=== PATIENT | male | born 1935 | race Caucasian/White ===

== ENCOUNTER 2016-08-05 15:28 | Inpatient (IN) ==
[2016-08-05] MEDS ORDERED: ACETAMINOPHEN 325 MG TABLET PO PRN (16:43)
[2016-08-05] MEDS: SODIUM CHLORIDE 0.9% 1,000 ML IV SCH (17:08)
--- NOTE | 2016-08-05 17:30 | Hospitalist History & Physical ---
Assessment and Plan (1) UTI (urinary tract infection) Status: Acute Assessment and plan: Admit to [facility]. IV antibiotics empirically. Urinalysis and urine culture stat. IVF hydration. Current Visit: Yes (2) Bladder cancer Status: Chronic Assessment and plan: History of bladder ca. Current Visit: Yes (3) Prostate cancer Status: Chronic Current Visit: Yes (4) Peripheral vascular disease Status: Acute Assessment and plan: BLE. Order ZECHARIAH for evaluation. Treat accordingly. Lovenox for VTE instead of mechanical VTE Current Visit: Yes History of Present Illness Chief complaint: UTI History of present illness: Mr. Feng is a 81 year old white male patient with a history of bladder and prostate cancer that is a direct admit from the local [facility] for failed outpatient therapy of urinary tract infection and evaluation of bilateral lower extremities. is present at the bedside. Pt. was seen in the ED for fever and UTI last week and received a prescription for Levaquin. He states that he finished his therapy but didn't notice any relief. He and his went to see Gabby Jay today in clinic. This is reportedly the first time the patient had been seen by a provider since 2013 (when patient completed chemotherapy). Pt. denies fever, shortness of breath, n/v/d, or any other symptoms at this time. Pt 's also pointed out patient's legs which are slightly swollen and are scaly with discoloration noted to right foot. Pt. will be treated for UTI and tested for any vascular issues. Home Medications Medication Instructions Recorded Confirmed Type No Known Home Medications [No 08/05/16 08/05/16 History Known Home Medications] Allergies Allergy/AdvReac Type Severity Reaction Status Date / Time No Known Allergies Allergy Unverified 08/05/16 16:43 Medical,Surgical,& Family Hx - Medical History Respiratory: History of: Pneumonia Genitourinary: History of: Bladder Problem (bladder ca) - Surgical History Abdominal Surgeries: Surgical HX of: Appendectomy, Cholecystectomy - Family History Family History: Denies;: Family Anesthesia Reaction, Family Cancer, Family Diabetes, Family Heart Disease, Family Hematology, Family Hypertension, Family Psychiatric Problems, Family Stroke, Additional Family History - Social History Smoking Status: Unknown if ever smoked Frequency of Alcohol Use: None Type of Drug Use: None Marital Status: Lives With:: Spouse Functional capacity: independent ambulation - Constitutional Constitutional: Absent: chills, fever(s) - EENT Eyes: Present: loss of vision, requires corrective lense Ears: Present: decreased hearing. Absent: ear discharge Nose, mouth and throat: Absent: headache(s), hoarseness - Cardiovascular Cardiovascular: Present: dyspnea. Absent: chest pain at rest - Respiratory Respiratory: Absent: dyspnea - Gastrointestinal Gastrointestinal: Absent: abdominal pain, nausea, vomiting - Genitourinary Genitourinary: Present: difficulty urinating. Absent: urinary incontinence - Musculoskeletal Musculoskeletal: Absent: back pain - Neurological Neurological: Present: confusion. Absent: dizziness - Psychiatric Psychiatric: Present: confusion - Endocrine Endocrine: Absent: fatigue Exam - Constitutional Vitals: Period Temp Pulse Resp BP Sys/Rowe Pulse Ox Last 24 Hr 97.2 F 75 24 139/84 98 General appearance: normal weight, no acute distress - Head Head exam: Present: normal inspection, normocephalic - Eye Eye exam: Present: EOMI. Absent: scleral icterus Pupils: Present: ELIZABETH. Absent: fixed - Neck Neck exam: Absent: thyromegaly - Respiratory Respiratory exam: Present: clear to auscultation bilaterally. Absent: wheezes - Cardiovascular Cardiovascular exam: Present: regular rate and rhythm - GI/Abdominal GI/Abdominal exam: Present: normal bowel sounds, soft. Absent: tenderness - Extremities Exam Extremities exam: Present: edema (bilateral lower extremity), other (bilateral lower extremity is warm; skin is scaly.) - Neurological Exam Neurological exam: Present: alert, oriented X3 - Psychiatric Psychiatric exam: Present: normal affect, normal mood - Skin Skin exam: Present: normal color, warm, dry, other Results - Labs Labs: Labs pending
[2016-08-05] MEDS: cefTRIAXone 1,000 MG in SODIUM CHLORIDE 0.9% 100 ML IV SCH (18:25)
[2016-08-05 19:16] LABS: Calcium 8.8 MG/DL (8.5-10.1); Osmolality,Calculated 283.4 MOS/KG (273-304); Potassium 4.6 MMOL/L (3.5-5.1)
[2016-08-05 19:29] LABS: Apearance,Urine Slightly Hazy (Clear); Bacteria,Urine Few /HPF (Few); Bilirubin,Urine Negative (Negative); Blood, Urine Negative (Negative); Glucose,Urine (UA) Negative (Negative); Ketones,Urine Negative (Negative); Mucus,Urine Occasional /LPF (Occasional); Nitrite,Urine Negative (Negative); Protein,Urine 30 MG/DL; RBC,Urine 4 /HPF (0-4); Urine Color Yellow (Yellow); Urine Specific Gravity 1.011 (1.001-1.035); Urine Urobilinogen < 2.0 EU/DL (0.2-1.0); WBC,Urine 156 /HPF (0-6)
[2016-08-05] MEDS: ENOXAPARIN 40 MG/0.4 ML SYRINGE SUBCUT SCH (20:34)
[2016-08-06 05:23] LABS: Basophils % 0.2 % (0.0-0.8); Eosinophils # 0.2 10*3/uL (0.0-0.87); Eosinophils % 2.4 % (0.00-10.9); Hematocrit 36.3 VOL% (42.0-52.0); Hemoglobin 12.8 GM/DL (14.0-18.0); Immature Granulocytes % 0.5 %; Immature Granulocytes Absolute 0.04 #; Lymphocytes # 0.9 10*3/uL (1.4-4.0); Lymphocytes % 10.3 % (21.2-54.2); Mean Corpuscular HGB Conc 35.3 GM/DL (32-36); Mean Corpuscular Hemoglobin 31 PG (27-34); Mean Corpuscular Volume 88.1 FL (87-102); Mean Platelet Volume 8.3 FL (9.6-12.0); Monocytes # 0.5 10*3/uL (0.11-0.8); Monocytes % 5.4 % (1.7-12.7); Neutrophils # 6.7 10*3/uL (1.4-7.4); Neutrophils % 81.2 % (38.7-73.9); Platelet Count 245 T/CUMM (130-400); Red Blood Count 4.12 MC/CUMM (3.8-5.5); Red Cell Distribution Width 12.5 % (9.3-17.3); White Blood Count 8.3 T/CUMM (4-12)
[2016-08-06 05:51] LABS: Calcium 8.2 MG/DL (8.5-10.1); Free T4 (Free Thyroxine) 1.15 NG/DL (0.76-1.46); Magnesium 1.7 MG/DL (1.8-2.4); Osmolality,Calculated 279.5 MOS/KG (273-304); Potassium 4.1 MMOL/L (3.5-5.1); Risk Ratio 2.97; Thyroid Stimulating Hormone 2.93 uIU/ml (0.358-3.74); VLDL CHOLESTEROL 21.6 MG/DL
[2016-08-06] MEDS: SODIUM CHLORIDE 0.9% 1,000 ML IV SCH (06:39)
[2016-08-06] MEDS: PANTOPRAZOLE 40 MG TABLET PO SCH (10:44)
--- NOTE | 2016-08-06 10:56 | Hospitalist Progress Note ---
Hospitalist: Subjective Interval history: Patient denies any pain. No fever. He has had some urinary output. Denies any dysuria or hematuria. Tolerating oral intake. No nausea or vomiting. Last bowel movement was overnight. His answers most of the questions for him. Exam - Constitutional Vitals: Period Temp Pulse Resp BP Sys/Rowe Pulse Ox Last 24 Hr 96.2 F-98.3 F 75-77 18-24 118-149/60-84 93-98 Exam: Elderly, Awake, alert, NAD RRR 1/6 systolic M CTAB nonlabored Soft, NT, ND, +BS Warm no c/c/ trace LE edema with hyperpigmentation and slight pinkish hue to LE on shins. Results - Labs CBC & BMP: 08/06/16 05:01 08/06/16 05:01 - Impressions (1) UTI (urinary tract infection)/ ? cystitis vs. prostatitis Status: Acute Assessment and plan: - IV antibiotics empirically. F/U Urine culture stat. Stop IVF. Current Visit: Yes (2) Bladder cancer Status: Chronic Assessment and plan: History of bladder ca. Current Visit: Yes (3) Prostate cancer Status: Chronic Current Visit: Yes - check PSA. Consult urology (4) Peripheral vascular disease Status: Acute Assessment and plan: - ZECHARIAH pending. Treat accordingly. Lovenox for VTE instead of mechanical VTE. HgbA1c <6. Check lipid panel Current Visit: Yes (5) Acute renal failure - improved s/p IVF. Stop IVF D/W nurse, pt and . All questions answered.
[2016-08-06] MEDS ORDERED: NITROGLYCERIN SL 0.4 MG TABLET SL ONE (14:37)
[2016-08-06] MEDS ORDERED: ASPIRIN 325 MG TABLET ONE (14:37)
[2016-08-06] MEDS ORDERED: NITROGLYCERIN SL 0.4 MG TABLET SL STA (14:43)
[2016-08-06] MEDS ORDERED: ASPIRIN 325 MG TABLET PO STA (14:44)
[2016-08-06 15:05] LABS: ABG Base Excess -3.2 MMOL/L (-2.5-2.5); ABG HCO3 21.8 MMOL/L (20-26); ABG PH 7.405 (7.35-7.45)
--- NOTE | 2016-08-06 15:05 | XRay Report ---
History: Chest pain Date: 08/06/2016 Study: Chest x-ray AP portable Comparison exam: July 27, 2016 chest x-ray A right subclavian Mediport-type catheter is stable in position. There is mild cardiomegaly. The mediastinal contours are unchanged. There is moderate aortic arch calcification. The pulmonary vasculature is borderline prominent, though the exam was performed in shallow inspiration. There is some minor strandy and hazy atelectasis in the lung bases. There is no gross pleural effusion. Osseous structures are similar. Impression: Shallow inspiration with some mild subsegmental atelectasis in the lung bases. Borderline pulmonary venous hypertension appearance PROCEDURE INTERPRETED AT [facility] DEPARTMENT OF RADIOLOGY Final Report Signed by: Dr. Veronica Patricio
--- NOTE | 2016-08-06 15:19 | Urology Consultation ---
Assessment and Plan - Time spent with patient Time spent with patient: Less than 30 minutes (1) UTI (urinary tract infection) Status: Acute Assessment and plan: Treat the infection. I do recommend he get an appointment over see Dr. Salinas. I am not his urologist. The patient terminated a relationship and when he went and saw Dr. Hurtado. Dr. Hurtado was treating him for bladder cancer. Current Visit: Yes History of Present Illness - Data of Consult Patient: new to practice Consult date: 08/06/16 Requesting Physician: Laura Olsen - Consult Narrative Reason for consult: Urinary tract infection History of present illness: Mr. Feng is a 81 year old male who used to be a patient of mine. I actually did a TUR on him years ago. Last time I saw him was 2010. They have since seen another urologist who apparently diagnosed bladder cancer. He had radiation and chemo. He has not been back since. He has not had cystoscopy since. I recommend that his infection be treated and he get an appointment to see Dr. Salinas over at [place]. He has fired me so I am not his urologist. He needs a follow-up for the invasive bladder cancer. I do not have any specific recommendations at this time. CC: Laura Olsen MD - Home Medications and Allergies Home Medications: Home Medications Medication Instructions Recorded Confirmed Type No Known Home Medications [No 08/05/16 08/05/16 History Known Home Medications] Allergies/Adverse Reactions: Allergies Allergy/AdvReac Type Severity Reaction Status Date / Time No Known Allergies Allergy Unverified 08/05/16 16:43 12 point system: reviewed and no additional remarkable complaints except as stated Exam - Constitutional Vitals: Period Temp Pulse Resp BP Sys/Rowe Pulse Ox Last 24 Hr 96.2 F-98.3 F 75-83 18-24 118-149/60-84 93-98 Results - Labs CBC & BMP: 08/06/16 05:01 08/06/16 05:01
[2016-08-06 15:48] LABS: Troponin I Only < 0.015 NG/ML (0.00-0.045)
[2016-08-06] MEDS: ENOXAPARIN 40 MG/0.4 ML SYRINGE SUBCUT SCH (20:53)
[2016-08-06] MEDS: cefTRIAXone 1,000 MG in SODIUM CHLORIDE 0.9% 100 ML IV SCH (22:05)
--- NOTE | 2016-08-07 07:11 | Hospitalist Progress Note ---
Hospitalist: Subjective Interval history: Pt had a heart alert yesterday. EKG and cardiac markers were negative. Given Nitro SL x 1 and was pain free when I evaluated pt. No fever. He has had no further chest pain. Feet cool and slightly pale this am while sitting in a chair. states he does this most of the time. She thinks the redness on the left leg is improving. Exam - Constitutional Vitals: Period Temp Pulse Resp BP Sys/Rowe Pulse Ox Last 24 Hr 97.3 F-98.9 F 73-92 16-20 118-135/63-71 94-98 Exam: Elderly, Awake, alert, NAD, sitting in the chair. RRR 1/6 systolic M CTAB nonlabored Soft, NT, ND, +BS Warm no c/c/ trace LE edema with hyperpigmentation and slight pinkish hue to LE on shins. toes are cyanotic and cool. Palpable pulses appreciated. Results - Labs CBC & BMP: 08/06/16 05:01 08/06/16 05:01 - Impressions (1) UTI (urinary tract infection)/ ? cystitis vs. prostatitis Status: Acute Assessment and plan: - IV antibiotics empirically. F/U Urine culture. Current Visit: Yes (2) Bladder cancer Status: Chronic Assessment and plan: History of bladder ca. Current Visit: Yes (3) Prostate cancer Status: Chronic Current Visit: Yes - PSA normal. Urology recommended F/U with Dr. Salinas ([place]) at discharge. (4) Peripheral vascular disease Status: Acute Assessment and plan: - ZECHARIAH pending. F/U results. Treat accordingly. Lovenox for VTE instead of mechanical VTE. HgbA1c <6. Lipid panel shows LDL <100. Current Visit: Yes (5) Acute renal failure - improved s/p IVF. Stop IVF D/W nurse, pt and . All questions answered. I will be away several days. One of my associates will follow in my absence.
--- NOTE | 2016-08-07 08:36 | EKG Report ---
Stationary ECG Study [facility] Test Date: 08/06/2016 2:40:52 PM Pat Name: MARGARITA MOSQUERA Department: Room: 223 Gender: M [employer] Specialist: : [id number] Requested by: Ward Talley Order Number: [id number] Reading MD: NINA WEBB Intervals [place] Rate: 77 P: 57 CT: 203 QRS: 15 QRSD: 86 T: 39 QT: 359 QTc: 390 Interpretive Statements SINUS RHYTHM NORMAL ECG Electronically Signed On 08-07-16 10:10:50 CDT by NINA WEBB [email or web address]
[2016-08-07] MEDS: PANTOPRAZOLE 40 MG TABLET PO SCH (09:38)
[2016-08-07] MEDS: ENOXAPARIN 40 MG/0.4 ML SYRINGE SUBCUT SCH (20:20)
[2016-08-07] MEDS: cefTRIAXone 1,000 MG in SODIUM CHLORIDE 0.9% 100 ML IV SCH (20:20)
--- NOTE | 2016-08-08 09:44 | Hospitalist Progress Note ---
Assessment and Plan (1) UTI (urinary tract infection) Status: Acute Current Visit: Yes (2) Peripheral vascular disease Status: Acute Current Visit: Yes (3) Prostate cancer Status: Chronic Assessment and plan: -Continue current IV antibiotics for treatment of urinary tract infection -Repeat urinalysis in the morning -Ankle-brachial index studies remain pending -Continue Lovenox for DVT prophylaxis -The patient's urine is improved and his ABIs are normal, patient should be stable for discharge tomorrow Current Visit: Yes Hospitalist: Subjective Interval history: The patient reports that he feels better today. He denies any fevers or chills overnight. He is tolerating antibiotics well. He denies any chest pain, headaches or shortness of breath. He reports that the swelling of both lower extremities has improved as well. Exam - Constitutional Vitals: Period Temp Pulse Resp BP Sys/Rowe Pulse Ox Last 24 Hr 96.5 F-98.1 F 71-91 18-22 115-134/60-75 90-97 General appearance: normal weight - Head Head exam: Present: normal inspection - Eye Eye exam: Present: EOMI Pupils: Present: ELIZABETH - ENT ENT exam: Present: normal exam, normal oropharynx - Neck Neck exam: Present: normal inspection - Respiratory Respiratory exam: Present: clear to auscultation bilaterally. Absent: rhonchi, stridor, wheezes - Cardiovascular Cardiovascular exam: Present: regular rate and rhythm. Absent: systolic murmur , tachycardia - GI/Abdominal GI/Abdominal exam: Present: normal bowel sounds, soft. Absent: ascites, distended - Extremities Exam Extremities exam: Present: edema (1+ pitting edema bilaterally) - Neurological Exam Neurological exam: Present: alert, oriented X3, CN II-XII intact - Psychiatric Psychiatric exam: Present: normal affect, normal mood - Skin Skin exam: Present: erythema (Erythema bilateral lower extremities, improving) Results - Labs CBC & BMP: 08/06/16 05:01 08/06/16 05:01
[2016-08-08] MEDS: PANTOPRAZOLE 40 MG TABLET PO SCH (10:14)
[2016-08-08] MEDS: cefTRIAXone 1,000 MG in SODIUM CHLORIDE 0.9% 100 ML IV SCH (20:49)
[2016-08-08] MEDS: ENOXAPARIN 40 MG/0.4 ML SYRINGE SUBCUT SCH (20:49)
[2016-08-09 05:15] LABS: Basophils % 0.4 % (0.0-0.8); Eosinophils # 0.3 10*3/uL (0.0-0.87); Eosinophils % 4.6 % (0.00-10.9); Hemoglobin 12.2 GM/DL (14.0-18.0); Immature Granulocytes % 0.4 %; Immature Granulocytes Absolute 0.03 #; Lymphocytes # 0.9 10*3/uL (1.4-4.0); Lymphocytes % 13.2 % (21.2-54.2); Mean Corpuscular HGB Conc 34.9 GM/DL (32-36); Mean Corpuscular Hemoglobin 31 PG (27-34); Mean Corpuscular Volume 88.6 FL (87-102); Mean Platelet Volume 8.5 FL (9.6-12.0); Monocytes # 0.7 10*3/uL (0.11-0.8); Monocytes % 9.4 % (1.7-12.7); Neutrophils # 5.1 10*3/uL (1.4-7.4); Platelet Count 285 T/CUMM (130-400); Red Blood Count 3.95 MC/CUMM (3.8-5.5); Red Cell Distribution Width 12.7 % (9.3-17.3)
[2016-08-09 05:52] LABS: Calcium 8.5 MG/DL (8.5-10.1); Potassium 3.9 MMOL/L (3.5-5.1)
--- NOTE | 2016-08-09 07:42 | Urology Progress Note ---
Urology - PN: Subj Interval history: I saw the patient today at the family's request. The patient has a history of prostate and bladder cancer and has been followed by Dr. chaney but apparently has not had any evaluation recently. History was obtained from the patient's and she was not able to give him a detailed history. Patient was admitted with a urinary tract infection and had pyuria on urinalysis and has normal renal function. I am going to order a PSA and urine cytology on the patient today and request records from Dr. chaney's office. It is okay with me to discharge the patient as needed and I will follow-up in the office and plan an outpatient cystoscopic examination of the patient is due for this Exam - Constitutional Vitals: Period Temp Pulse Resp BP Sys/Rowe Pulse Ox Last 24 Hr 97.1 F-97.7 F 75-91 18-20 123-151/66-79 95-98 Results - Labs CBC & BMP: 08/09/16 04:50 08/09/16 04:50
[2016-08-09] MEDS: PANTOPRAZOLE 40 MG TABLET PO SCH (08:17)
--- NOTE | 2016-08-09 08:49 | XRay Report ---
History: Fall. History of prostate cancer and bladder cancer Date: 08/09/2016 Study: Right hip 2 views to include AP pelvis Comparison exam: No previous hip x-ray available There is no acute fracture or dislocation. There is mild osteophyte formation of either hip, with mild joint space narrowing. A ureteral stent is in place on the right, only partially included on the exam. Impression: Osteoarthritis. No acute bony abnormality otherwise. Right ureteral stent, partially visualized PROCEDURE INTERPRETED AT [facility] DEPARTMENT OF RADIOLOGY Final Report Signed by: Dr. Veronica Patricio
--- NOTE | 2016-08-09 14:44 | Discharge Summary ---
Hospital Course - Hospital Course Hospital Course: Discharge diagnosis Urinary tract infection malignancy Venous stasis disease The patient presented to the hospital on referral from an outside clinic for treatment of urinary tract infection. He was also felt to have some possible peripheral arterial disease. He was started on some IV antibiotics. Examination was more consistent with venous stasis disease. He improved with IV antibiotics. He had a fall on the evening prior to discharge, and landed on his right hip. He had a hematoma, but there is no injury noted on the x-ray of the hip. On the day of discharge, he was ambulatory in the room. His urine culture only grew staph epidermidis. This is likely a contaminant. I think he is ready for discharge now. Medication reconciliation has been done. Regular diet. Activity as tolerated. Follow-up with local physician. This note was completed using [email or web address] voice recognition software. There may be costume specialist errors as a result. Specialty Discharge - Follow Up or Referrals Follow up with: Augusto Moss MD [Physician] - 09/08/16 9:45 am Discharge Plan - Discharge Data Disposition: Disch To Home/Self Care Condition at Discharge: Stable Discharge Diet: advance to your usual diet Activity: resume usual activities as tolerated Hygiene: no restrictions Weight Bearing at Discharge: full weight bearing - Discharge Medications No Action No Known Home Medications [No Known Home Medications] - Follow Up or Referral Follow Up: Augusto Moss MD [Physician] - 09/08/16 9:45 am - Forms/Instructions Exam - Constitutional Vitals: Period Temp Pulse Resp BP Sys/Rowe Pulse Ox Last 24 Hr 97.1 F-97.8 F 73-96 18-20 120-151/53-79 94-100 Vital signs are noted above. Heart is regular with no murmur. Lungs are clear with no rales or wheezes. He is up and about in the room. He has a soft tissue hematoma along the right trochanteric bursa. Discharge Results Procedures and tests throughout hospitalization: Pending Orders 08/09/16 07:00 Urinalysis Routine 08/09/16 07:44 Cytology Request Routine Labs on day of discharge: Labs from last 24 hours 08/09/16 08/09/16 08/09/16 04:50 04:50 04:50 WBC 7.0 RBC 3.95 Hgb 12.2 L Hct 35.0 L MCV 88.6 MCH 31 MCHC 34.9 RDW 12.7 Plt Count 285 MPV 8.5 L Neut % (Auto) 72.0 Lymph % (Auto) 13.2 L Woods % (Auto) 9.4 Eos % (Auto) 4.6 Baso % (Auto) 0.4 Neut # (Auto) 5.1 Lymph # (Auto) 0.9 L Woods # (Auto) 0.7 Eos # (Auto) 0.3 Baso # (Auto) 0.0 Immature Gran % 0.4 Nucleated RBC % 0.0 Immature Gran # 0.03 Nucleated RBCs # 0.00 Sodium 143 Potassium 3.9 Chloride 108 H Carbon Dioxide 26 Anion Gap 12.9 BUN 14 Creatinine 1.20 GFR Calculation 68 BUN/Creatinine Ratio 11.00 Glucose 92 Calculated Osmolality 285.0 Calcium 8.5 PSA Diagnostic 0.1 DS: Provider Date of admission: 08/05/16 16:02 Primary care physician: Gabby Thompson NP Attending physician on admission: Laura Olsen MD Consults: 08/05/16 16:40 Consult to Dietitian [CONS] Routine Reason for Dietitian: Dietary Consult 08/06/16 08:52 Consult to Physician [CONS] Routine Comment: hx bladder ca recurrent uti Consulting Provider: uAgusto Moss Person Notified: pedro Date Notified: 08/06/16 Time Notified: 09:01 Discharging clinician: Al Mitchell MD Expected date of discharge: 08/09/16
[2016-08-09 16:13] VITALS: BP 139/68
== END 2016-08-09 16:30 | disposition home or self-care (01) | DRG 690 ==
LOC: N.2E 16:02 → SUATTDRO 16:02
PROVIDERS: ADMIT Pediatrics; ATTEND Internal Medicine Geriatric Medicine

== ENCOUNTER 2019-01-05 21:47 | Inpatient (IN) ==
[2019-01-05 22:51] LABS: Basophils % 0.4 % (0.0-0.8); Eosinophils # 1.8 10*3/uL (0.0-0.87); Hematocrit 37.8 VOL% (42.0-52.0); Hemoglobin 12.7 GM/DL (14.0-18.0); Immature Granulocytes % 0.3 %; Immature Granulocytes Absolute 0.03 #; Lymphocytes # 1.2 10*3/uL (1.4-4.0); Lymphocytes % 13.5 % (21.2-54.2); Mean Corpuscular HGB Conc 33.6 GM/DL (32-36); Monocytes % 9.1 % (1.7-12.7); Neutrophils % 56.7 % (38.7-73.9); Platelet Count 247 T/CUMM (130-400); Red Blood Count 4.02 MC/CUMM (3.8-5.5); Red Cell Distribution Width 13.2 % (9.3-17.3)
[2019-01-05 23:11] LABS: Albumin 2.7 G/DL (3.4-5.0); Bilirubin,Total 0.9 MG/DL (0.2-1.0); Calcium 9.2 MG/DL (8.5-10.1); Total Protein 6.7 G/DL (6.4-8.3)
[2019-01-05 23:17] LABS: Eosinophils 22 % (0-10); Lymphocytes 9 % (20-55); Platelet Estimate Normal; Segmented Neutrophils 59 % (50-85); Total Cells Counted 100
[2019-01-05] MEDS ORDERED: SODIUM CHLORIDE 0.9% 1,000 ML IV STA (23:19)
[2019-01-05 23:24] LABS: Apearance,Urine CLEAR (Clear); Bacteria,Urine Moderate /HPF (Few); Bilirubin,Urine Negative (Negative); Blood, Urine Negative (Negative); Glucose,Urine (UA) Negative (Negative); Ketones,Urine Negative (Negative); Mucus,Urine Occasional /LPF (Occasional); Nitrite,Urine Negative (Negative); Protein,Urine 100 MG/DL; RBC,Urine 23 /HPF (0-4); Squamous Epithelial Cell,Urine Occasional /HPF (0-10); Urine Color Amber (Yellow); Urine Specific Gravity 1.024 (1.001-1.035); Urine Urobilinogen < 2.0 EU/DL (0.2-1.0); WBC,Urine 84 /HPF (0-6)
[2019-01-05] MEDS ORDERED: cefTRIAXone 1,000 MG in SODIUM CHLORIDE 0.9% 100 ML IV STA (23:30)
[2019-01-06] MEDS ORDERED: SKIN HEALING OINT (AQUAPHOR) 50 GM TUBE TOP PRN (01:41)
[2019-01-06] MEDS ORDERED: ONDANSETRON 4 MG/2 ML VIAL IV PRN (01:41)
[2019-01-06] MEDS ORDERED: ACETAMINOPHEN 325 MG/10.15 ML UDCUP PO PRN (01:41)
[2019-01-06] MEDS: MEROPENEM 500 MG in SODIUM CHLORIDE 0.9% 100 ML IV SCH ×2 (01:42→06:00)
[2019-01-06] MEDS: SODIUM CHLORIDE 0.9% 1,000 ML IV SCH ×3 (02:53→23:15)
[2019-01-06 05:56] LABS: Basophils % 0.5 % (0.0-0.8); Eosinophils # 1.2 10*3/uL (0.0-0.87); Eosinophils % 15.2 % (0.00-10.9); Hematocrit 35.6 VOL% (42.0-52.0); Immature Granulocytes % 0.1 %; Immature Granulocytes Absolute 0.01 #; Lymphocytes # 1.1 10*3/uL (1.4-4.0); Lymphocytes % 14.1 % (21.2-54.2); Mean Corpuscular HGB Conc 33.7 GM/DL (32-36); Mean Corpuscular Volume 93.4 FL (87-102); Mean Platelet Volume 9.1 FL (9.6-12.0); Monocytes % 8.7 % (1.7-12.7); Neutrophils % 61.4 % (38.7-73.9); Platelet Count 211 T/CUMM (130-400); Red Blood Count 3.81 MC/CUMM (3.8-5.5); Red Cell Distribution Width 13.2 % (9.3-17.3)
[2019-01-06] MEDS: GENTAMICIN 0.3% OPH SOLN 5 ML BOTTLE BOTH EYES SCH ×5 (05:56→22:28)
[2019-01-06 06:15] LABS: Calcium 8.2 MG/DL (8.5-10.1); Osmolality,Calculated 289.1 MOS/KG (273-304)
[2019-01-06 06:46] LABS: Band Neutrophils 3 % (0-10); Eosinophils 17 % (0-10); Lymphocytes 8 % (20-55); Segmented Neutrophils 63 % (50-85); Total Cells Counted 100
[2019-01-06 06:47] LABS: Anisocytosis 1+; Macrocytosis Slight
[2019-01-06] MEDS: cefTRIAXone 1,000 MG in SYRINGE 1 EACH IV SCH (09:19)
[2019-01-06] MEDS: ENOXAPARIN 40 MG/0.4 ML SYRINGE SUBCUT SCH (09:19)
[2019-01-06] MEDS ORDERED: ZIPRASIDONE 20 MG/1 ML VIAL IM ONE (09:53)
[2019-01-06] MEDS: HYDROmorphone 2 MG/1 ML VIAL IV PRN ×2 (14:07→20:10)
[2019-01-06] MEDS: MIRTAZAPINE 15 MG TABLET PO SCH (21:11)
[2019-01-07] MEDS: GENTAMICIN 0.3% OPH SOLN 5 ML BOTTLE BOTH EYES SCH ×6 (01:02→21:50)
[2019-01-07] MEDS: HYDROmorphone 2 MG/1 ML VIAL IV PRN (04:17)
[2019-01-07 05:08] LABS: Basophils % 0.3 % (0.0-0.8); Eosinophils # 0.9 10*3/uL (0.0-0.87); Eosinophils % 12.1 % (0.00-10.9); Hemoglobin 12.1 GM/DL (14.0-18.0); Immature Granulocytes % 0.1 %; Immature Granulocytes Absolute 0.01 #; Lymphocytes % 13.8 % (21.2-54.2); Mean Corpuscular HGB Conc 32.7 GM/DL (32-36); Mean Corpuscular Volume 95.6 FL (87-102); Monocytes % 8.9 % (1.7-12.7); Neutrophils % 64.8 % (38.7-73.9); Platelet Count 208 T/CUMM (130-400); Red Blood Count 3.87 MC/CUMM (3.8-5.5); Red Cell Distribution Width 13.3 % (9.3-17.3); White Blood Count 7.2 T/CUMM (4-12)
[2019-01-07 05:36] LABS: Calcium 8.5 MG/DL (8.5-10.1); Osmolality,Calculated 295.6 MOS/KG (273-304)
[2019-01-07 06:09] LABS: Eosinophils 15 % (0-10); Lymphocytes 10 % (20-55); Platelet Estimate Normal; Segmented Neutrophils 70 % (50-85); Total Cells Counted 100
[2019-01-07 06:10] LABS: Anisocytosis Slight
[2019-01-07] MEDS ORDERED: LORazepam 2 MG/1 ML VIAL IV PRN (09:32)
[2019-01-07] MEDS: ENOXAPARIN 40 MG/0.4 ML SYRINGE SUBCUT SCH (09:46)
[2019-01-07] MEDS: cefTRIAXone 1,000 MG in SYRINGE 1 EACH IV SCH (09:47)
[2019-01-07] MEDS: DEXTROSE 5% NACL 0.45% 1,000 ML IV SCH ×3 (09:51→23:44)
[2019-01-07] MEDS ORDERED: fentaNYL 25 MCG/HR PATCH TRANSDERM SCH (10:00)
[2019-01-07] MEDS ORDERED: diphenhydrAMINE 50 MG/1 ML VIAL IV ONE (10:50)
[2019-01-07] MEDS: MIRTAZAPINE 15 MG TABLET PO SCH (21:50)
[2019-01-07] MEDS: MORPHINE 4 MG/1 ML VIAL IV PRN (22:04)
[2019-01-08] MEDS: GENTAMICIN 0.3% OPH SOLN 5 ML BOTTLE BOTH EYES SCH ×6 (03:45→23:15)
[2019-01-08] MEDS: cefTRIAXone 1,000 MG in SYRINGE 1 EACH IV SCH (08:55)
[2019-01-08] MEDS ORDERED: fentaNYL 75 MCG/HR PATCH TRANSDERM SCH (09:00)
[2019-01-08] MEDS: DEXTROSE 5% NACL 0.45% 1,000 ML IV SCH ×2 (11:05→12:40)
[2019-01-08] MEDS ORDERED: ACETAMINOPHEN 650 MG SUPP RECTAL PRN (11:43)
[2019-01-08] MEDS: diphenhydrAMINE 50 MG/1 ML VIAL IV PRN ×2 (11:52→18:42)
[2019-01-08] MEDS: MORPHINE 4 MG/1 ML VIAL IV PRN (23:15)
[2019-01-09] MEDS: GENTAMICIN 0.3% OPH SOLN 5 ML BOTTLE BOTH EYES SCH ×6 (03:35→23:08)
[2019-01-09] MEDS: DEXTROSE 5% NACL 0.45% 1,000 ML IV SCH ×2 (03:36→16:04)
[2019-01-09] MEDS: diphenhydrAMINE 50 MG/1 ML VIAL IV PRN (09:46)
[2019-01-09] MEDS ORDERED: LORazepam 2 MG/1 ML VIAL IV SCH (16:30)
[2019-01-09] MEDS ORDERED: fentaNYL 100 MCG/HR PATCH TRANSDERM SCH (17:30)
[2019-01-09] MEDS: ORPHENADRINE 60 MG/2 ML VIAL IV SCH (18:31)
[2019-01-10] MEDS: GENTAMICIN 0.3% OPH SOLN 5 ML BOTTLE BOTH EYES SCH ×3 (03:13→11:34)
[2019-01-10 07:23] VITALS: BP 86/35
[2019-01-10] MEDS: ORPHENADRINE 60 MG/2 ML VIAL IV SCH (07:34)
[2019-01-10] MEDS: LORazepam 2 MG/1 ML VIAL IV SCH ×2 (09:20→14:10)
[2019-01-10] MEDS ORDERED: SCOPOLAMINE 1.5 MG PATCH TRANSDERM SCH (10:10)
== END 2019-01-10 14:18 | disposition hospice, inpatient (51) | DRG 683 ==
LOC: EDBD → EDUNIT# → N.ED 21:47 → N.EDINP 01-06 00:03 → N.5E 01-06 01:15
PROVIDERS: ADMIT Hospitalist; ATTEND Hospitalist

== ENCOUNTER 2019-01-10 14:25 | Inpatient (IN) ==
[2019-01-10] MEDS ORDERED: diphenhydrAMINE 50 MG/1 ML VIAL IV PRN (14:44)
[2019-01-10] MEDS ORDERED: ACETAMINOPHEN 650 MG SUPP RECTAL PRN (14:44)
[2019-01-10] MEDS ORDERED: ONDANSETRON 4 MG/2 ML VIAL IV PRN (14:46)
[2019-01-10] MEDS ORDERED: ORPHENADRINE 60 MG/2 ML VIAL IV PRN (14:48)
[2019-01-10] MEDS ORDERED: fentaNYL 100 MCG/HR PATCH TRANSDERM SCH (15:00)
[2019-01-10] MEDS ORDERED: SCOPOLAMINE 1.5 MG PATCH TRANSDERM SCH (15:00)
[2019-01-10] MEDS: LORazepam 2 MG/1 ML VIAL IV SCH ×2 (18:06→22:35)
[2019-01-10] MEDS ORDERED: LORazepam 2 MG/1 ML VIAL IV ONE (21:00)
[2019-01-11] MEDS: LORazepam 2 MG/1 ML VIAL IV SCH ×4 (01:22→09:23)
[2019-01-11] MEDS: MORPHINE 4 MG/1 ML VIAL IV PRN (04:14)
[2019-01-11] MEDS: LORazepam 2 MG/1 ML VIAL IV PRN ×3 (12:26→21:36)
[2019-01-12] MEDS: MORPHINE 4 MG/1 ML VIAL IV PRN ×3 (02:09→14:35)
[2019-01-12] MEDS: LORazepam 2 MG/1 ML VIAL IV PRN ×5 (06:26→23:35)
[2019-01-12] MEDS: fentaNYL 100 MCG/HR PATCH TRANSDERM SCH (08:37)
[2019-01-12] MEDS: DESITIN 4OZ/NYSTATIN 15 GRAM MIXTURE PASTE TOP SCH ×2 (10:07→22:04)
[2019-01-13] MEDS: LORazepam 2 MG/1 ML VIAL IV PRN ×5 (04:15→23:30)
[2019-01-13] MEDS ORDERED: SCOPOLAMINE 1.5 MG PATCH TRANSDERM SCH (09:00)
[2019-01-13] MEDS: DESITIN 4OZ/NYSTATIN 15 GRAM MIXTURE PASTE TOP SCH ×2 (10:30→23:30)
[2019-01-14] MEDS: MORPHINE 4 MG/1 ML VIAL IV PRN ×3 (02:54→14:30)
[2019-01-14] MEDS: LORazepam 2 MG/1 ML VIAL IV PRN ×3 (06:53→22:35)
[2019-01-14] MEDS: DESITIN 4OZ/NYSTATIN 15 GRAM MIXTURE PASTE TOP SCH ×2 (11:15→22:34)
[2019-01-15] MEDS: LORazepam 2 MG/1 ML VIAL IV PRN ×4 (02:59→13:11)
[2019-01-15] MEDS: fentaNYL 100 MCG/HR PATCH TRANSDERM SCH (08:36)
[2019-01-15] MEDS: DESITIN 4OZ/NYSTATIN 15 GRAM MIXTURE PASTE TOP SCH ×2 (09:12→22:22)
[2019-01-15] MEDS ORDERED: SKIN HEALING OINT (AQUAPHOR) 50 GM TUBE TOP PRN (11:48)
[2019-01-15] MEDS: ATIVAN INTENSOL SL SCH ×5 (15:07→23:40)
[2019-01-15] MEDS: MORPHINE 100 MG/5 ML SL SCH ×4 (15:07→22:30)
[2019-01-15 22:57] VITALS: BP 121/63
[2019-01-16] MEDS: MORPHINE 100 MG/5 ML SL SCH ×4 (00:39→06:45)
[2019-01-16] MEDS: ATIVAN INTENSOL SL SCH ×4 (01:26→07:39)
== END 2019-01-16 07:55 | disposition expired | DRG 951 ==
LOC: N.5E 14:25 → SUATTDRO 14:25
PROVIDERS: ADMIT Hospitalist; ATTEND Internal Medicine